=== PATIENT | female | born 1985 ===

== ENCOUNTER → 2022-10-27 | Day surgery (SDC) | payer OTHER | END | disposition home or self-care (01) | LOC: ADM 10-21 07:15 → CIR.AMB 06:02 | PROVIDERS: ATTEND Surgery | DX: D17.1 Benign lipomatous neoplasm of skin and subcutaneous tissue of trunk (principal); Z20.822 Contact with and (suspected) exposure to COVID-19; F12.90 Cannabis use, unspecified, uncomplicated ==